=== PATIENT | female | born 1975 | race Caucasian/White ===

== ENCOUNTER 2020-08-15 15:03 | Emergency (ER) | payer MEDICAID ==
[~2020-08-15] VITALS: Ht 162.6 cm; Wt 71.0 kg
[2020-08-15 15:09] VITALS: BP 124/62
[2020-08-15 16:53] LABS: HEPATITIS B SURFACE AB < 3.1 mIU/mL
[2020-08-15 17:03] LABS: HEPATITIS B SURFACE ANTIGEN NEGATIVE
[2020-08-17 09:06] LABS: HIV SCREEN 4G Non Reactive (Non Reactive)
== END 2020-08-15 16:30 | disposition home or self-care (01) ==
LOC: ER 15:03
DX: L53.9 Erythematous condition, unspecified (principal)
CPT/HCPCS: 36415; 87389; 99281; 99283